=== PATIENT | female | born 1990 ===

== ENCOUNTER 2017-01-13 14:02 | Emergency (ER) | payer SELFPAY ==
[2017-01-13 14:14] VITALS: BP 112/67; PULSE 83; RESP 16; TEMP 97.6; O2SAT 99
--- NOTE | 2017-01-13 14:31 | ED PDOC ---
HPI: General Adult Time Seen by Provider: 01/13/17 14:19 Chief Complaint (Nursing): ENT Problem History Per: Patient Additional Complaint(s): Pt. states for the past 2 days she's had sore throat and nasal congestion. She has been using Benadryl without relief. Denies fever, cough, facial pain, throat swelling, abdominal pain. Past Medical History Reviewed: Historical Data, Nursing Documentation, Vital Signs Vital Signs: Last Vital Signs Temp 97.6 F 01/13/17 14:10 Pulse 83 01/13/17 14:10 Resp 16 01/13/17 14:10 BP 112/67 01/13/17 14:10 Pulse Ox 99 01/13/17 14:32 - Family History Family History: States: No Known Family Hx - Home Medications Home Medications: Ambulatory Orders Medication Instructions Recorded Cetirizine HCl [Zyrtec] 10 mg PO DAILY PRN #15 capsule 01/13/17 - Allergies Allergies/Adverse Reactions: Allergies Allergy/AdvReac Type Severity Reaction Status Date / Time No Known Allergies Allergy Verified 01/13/17 14:10 Review of Systems ROS Statement: Except As Marked, All Systems Reviewed And Found Negative ENT: Positive for: Nose Congestion, Throat Pain Physical Exam - Physical Exam Appears: Positive for: Well, Non-toxic, No Acute Distress Skin: Positive for: Normal Color, Warm. Negative for: Rash Eye Exam: Positive for: Normal appearance, EOMI. Negative for: Conjunctival injection ENT: Positive for: TM Is/Are (non-erythematous, non-bulging b/l), Nasal Congestion, Pharyngeal Erythema. Negative for: Sinus Pain/Drainage, Tonsillar Exudate, Tonsillar Swelling Neck: Positive for: Normal, Painless ROM Cardiovascular/Chest: Positive for: Regular Rate, Rhythm Respiratory: Positive for: Normal Breath Sounds. Negative for: Rales, Wheezing , Respiratory Distress Extremity: Positive for: Normal ROM Neurologic/Psych: Positive for: Alert, Oriented - ECG O2 Sat by Pulse Oximetry: 99 - Progress ED Course And Treament: Rapid strep: negative. Disposition - Clinical Impression Clinical Impression: Upper respiratory infection - Patient ED Disposition Is Patient to be Admitted: No - Disposition Referrals: [facility] [Outside] Disposition: Routine/Home Disposition Time: 15:23 Condition: STABLE Prescriptions: Cetirizine HCl [Zyrtec] 10 mg PO DAILY PRN #15 capsule PRN Reason: congestion Instructions: Upper Respiratory Infection (ED) Forms: [employer] ([place])
== END 2017-01-13 15:46 | disposition home or self-care (01) ==
LOC: H.ER 14:02
DX: J06.9 Acute upper respiratory infection, unspecified (principal)